=== PATIENT | female | born 1975 | race Caucasian/White ===

== ENCOUNTER 2023-06-27 21:14 | Emergency (ER) | payer MEDICAID ==
[~2023-06-27] VITALS: Ht 162.6 cm; Wt 55.0 kg
[2023-06-27 21:15] VITALS: O2SAT 98
[2023-06-27] MEDS ORDERED: ACETAMINOPHEN 325MG TABLET PO ONE (23:30)
[2023-06-27] MEDS ORDERED: ONDANSETRON 4MG ODT PO ONE (23:30)
[2023-06-28 00:11] VITALS: TEMP 98.3
[2023-06-28 00:13] VITALS: BP 147/64; PULSE 78; RESP 20
== END 2023-06-28 00:15 | disposition home or self-care (01) ==
LOC: ER 21:14
DX: J06.9 Acute upper respiratory infection, unspecified (principal)
CPT/HCPCS: 99283; Q0162

== ENCOUNTER 2023-07-05 04:35 | Emergency (ER) | payer MEDICAID ==
[~2023-07-05] VITALS: Ht 154.9 cm; Wt 65.0 kg
[2023-07-05 04:38] VITALS: BP 130/61; PULSE 71; RESP 16; O2SAT 100
[2023-07-05 06:45] VITALS: TEMP 98.5
[2023-07-05] MEDS ORDERED: ACETAMINOPHEN 325MG TABLET PO ONE (06:45)
== END 2023-07-05 08:00 | disposition home or self-care (01) ==
LOC: ER 04:35
DX: S50.11XA Contusion of right forearm, initial encounter (principal); R09.81 Nasal congestion; J45.909 Unspecified asthma, uncomplicated; V79.60XA Unspecified bus occupant injured in collision with unspecified motor vehicles in traffic accident, initial encounter; Y93.89 Activity, other specified; Y92.89 Other specified places as the place of occurrence of the external cause; Y99.8 Other external cause status
CPT/HCPCS: 71045; 73090; 99284